=== PATIENT | female | born 1955 ===

== ENCOUNTER 2018-06-15 07:48 | Emergency (ER) | payer MEDICARE ==
[2018-06-15 07:48] VITALS: BMI 31.1
[2018-06-15 07:53] VITALS: RESP 18
--- NOTE | 2018-06-15 08:53 | C.PDOC ---
History Of Present Illness 63 year old female presents to the emergency department with complaints of a headache and pain to the back of her head status-post falling and hitting her head against a door frame in the middle of the night. Patient denies visual changes. - HPI Time Seen by Provider: 06/15/18 08:03 Chief Complaint (Nursing): Trauma History Per: Patient History/Exam Limitations: no limitations Onset/Duration Of Symptoms: Hrs Location Of Injury: Posterior: Head Past Medical History Reviewed: Historical Data, Nursing Documentation, Vital Signs Vital Signs: Last Vital Signs Temp 98.5 F 06/15/18 11:41 Pulse 69 06/15/18 11:41 Resp 18 06/15/18 11:41 BP 137/91 H 06/15/18 11:41 Pulse Ox 97 06/15/18 11:41 - Medical History PMH: Anxiety, Arthritis, Back Problems, Bipolar Disorder, Depression, Gastritis , Gall Bladder Disease, HTN, Hypercholesterolemia, Hyperthyroidism, Hypothyroidism, Schizophrenia Denies: Diabetes, Hepatitis, Chronic Kidney Disease, Sexually Transmitted Disease Surgical History: Cholecystectomy, Endoscopy Family History: States: No Known Family Hx - Social History Hx Tobacco Use: Yes Hx Alcohol Use: No Hx Substance Use: No - Immunization History Hx Tetanus Toxoid Vaccination: No Hx Influenza Vaccination: No Hx Pneumococcal Vaccination: No Review Of Systems Except As Marked, All Systems Reviewed And Found Negative. Eyes: Negative for: Vision Change Musculoskeletal: Positive for: Other (occipital pain) Physical Exam - Physical Exam Appears: Non-toxic, No Acute Distress Skin: Warm, Dry Head: Tenderness (occipital scalp), Swelling (to occipital scalp) Eye(s): bilateral: Normal Inspection, PERRL, EOMI Neck: Normal, Supple Chest: Symmetrical Cardiovascular: Rhythm Regular, No Murmur Respiratory: Normal Breath Sounds, No Rales, No Rhonchi, No Wheezing Extremity: Normal ROM Neurological/Psych: Oriented x3, Normal Speech, Normal Cognition ED Course And Treatment O2 Sat by Pulse Oximetry: 96 (RA) Pulse Ox Interpretation: Normal - CT Scan/US CT C-Spine Other Rad Studies (CT/US): Read By Radiologist, Radiology Report Reviewed CT/US Interpretation: IMPRESSION: No fracture/ dislocation. Degenerative disc disease at C4-5 and C5-6. Possible muscular spasm. Levoscoliosis. Multinodular thyroid. Correlate with thyroid ultrasound examination. CT Head Other Rad Studies (CT/US): Read By Radiologist, Radiology Report Reviewed CT/US Interpretation: IMPRESSION: No intracranial hemorrhage. Age related chronic white matter ischemic change. Otherwise unremarkable examination. Progress Note: Plan: CT C-Spine. CT Head. Reglan 10mg PO. Tylenol 975mg PO Medical Decision Making Medical Decision Making: On re-exam, the patient reports improvement of symptoms. Lungs are CTA, heart is RRR, abdomen is soft, non-tender and tolerating PO well. Ambulatory in the ED with steady gait. Follow up with the medical doctor within 1-2 days. return if worsened. Disposition - Disposition Referrals: Janet Griffin MD [Medical Doctor] - Disposition: HOME/ ROUTINE Disposition Time: 11:21 Condition: STABLE Additional Instructions: Follow up with the medical doctor within 1-2 days. return if worsened. Prescriptions: Acetaminophen [Tylenol] 325 mg PO Q6 PRN #30 tab PRN Reason: Pain, Mild (1-3) Ibuprofen [Motrin] 600 mg PO TID #21 tab Instructions: Head Injury, Children and Adolescents (DC) Forms: [employer] (Syrian) - Clinical Impression Clinical Impression: Cervical strain, Head injury - PA / TEA BLENDER / Resident Statement MD/DO has reviewed & agrees with the documentation as recorded. - Scribe Statement The provider has reviewed the documentation as recorded by the Scribe (Favian Valenzuela) All medical record entries made by the Scribe were at my direction and personally dictated by me. I have reviewed the chart and agree that the record accurately reflects my personal performance of the history, physical exam, medical decision making, and the department course for this patient. I have also personally directed, reviewed, and agree with the discharge instructions and disposition.
--- NOTE | 2018-06-15 10:46 | CT ---
Date of service: 06/15/2018 PROCEDURE: CT HEAD WITHOUT CONTRAST. HISTORY: head injury, headache, r/o bleed COMPARISON: None available. TECHNIQUE: Axial computed tomography images were obtained through the head/brain without intravenous contrast. Radiation dose: Total exam DLP = 1137.90 mGy-cm. This CT exam was performed using one or more of the following dose reduction techniques: Automated exposure control, adjustment of the mA and/or kV according to patient size, and/or use of iterative reconstruction technique. FINDINGS: HEMORRHAGE: No intracranial hemorrhage. BRAIN: No mass effect or edema. Mild patchy periventricular deep/ subcortical white matter lucency consistent with chronic microvascular ischemic change. No evidence of acute infarct. VENTRICLES: Unremarkable. No hydrocephalus. CALVARIUM: Unremarkable. PARANASAL SINUSES: Unremarkable as visualized. No significant inflammatory changes. MASTOID AIR CELLS: Unremarkable as visualized. No inflammatory changes. OTHER FINDINGS: None. IMPRESSION: No intracranial hemorrhage. Age related chronic white matter ischemic change. Otherwise unremarkable examination.
--- NOTE | 2018-06-15 11:09 | CT ---
Date of service: 06/15/2018 PROCEDURE: CT Cervical Spine without contrast HISTORY: fall, neck pain COMPARISON: None available. TECHNIQUE: Axial computed tomography images were obtained of the cervical spine without the use of intravenous contrast. Coronal and sagittal reformatted images were created and reviewed. Radiation dose: Total exam DLP = 527.93 mGy-cm. This CT exam was performed using one or more of the following dose reduction techniques: Automated exposure control, adjustment of the mA and/or kV according to patient size, and/or use of iterative reconstruction technique. FINDINGS: VERTEBRAE: Vertebral bodies maintained in height. Normal alignment maintained. There is straightening of the normal lordotic curvature indicating possible muscular spasm. There is mild levo scoliotic curvature of the cervical spine. The atlantoaxial articulation and odontoid process are intact. DISCS/SPINAL CANAL/NEURAL FORAMINA: Narrowing of the C4-5 and C5-6 disc spaces consistent with degenerative disc disease. The remaining disc spaces are maintained in height. PARASPINAL SOFT TISSUES: No prevertebral soft tissue swelling. Multinodular thyroid. Correlate with thyroid ultrasound examination. OTHER FINDINGS: None. IMPRESSION: No fracture/ dislocation. Degenerative disc disease at C4-5 and C5-6. Possible muscular spasm. Levoscoliosis. Multinodular thyroid. Correlate with thyroid ultrasound examination.
[2018-06-15 11:42] VITALS: BP 137/91; PULSE 69; TEMP 98.5
[2018-06-15 12:14] VITALS: O2SAT 96
== END 2018-06-15 11:42 | disposition home or self-care (01) ==
LOC: C.ER 07:48
DX: S16.1XXA Strain of muscle, fascia and tendon at neck level, initial encounter (principal); S09.90XA Unspecified injury of head, initial encounter; W18.30XA Fall on same level, unspecified, initial encounter

== ENCOUNTER 2018-09-07 10:28 | Emergency (ER) | payer MEDICARE ==
[2018-09-07 10:29] VITALS: BMI 31.1
[2018-09-07 10:41] VITALS: RESP 18; TEMP 99.4
--- NOTE | 2018-09-07 11:10 | C.PDOC ---
History Of Present Illness 63 yr old female w/ hx of bipolar, depression p/w back pain. Back pain started 5d prior while at work. No trauma or fall. No enuresis, encoparesis or saddle anesthesia. First time occurence. She notes R back pain radiating below to R knee. No weakness or loss of sensation. No rash. No recent diarrheal illness. Has been taking motrin at home and lidocaine patches with mild relief. No other complaints Time Seen by Provider: 09/07/18 11:10 Chief Complaint (Nursing): Back Pain Past Medical History Vital Signs: Last Vital Signs Temp 99.4 F 09/07/18 10:36 Pulse 93 H 09/07/18 10:36 Resp 18 09/07/18 10:36 BP 135/91 H 09/07/18 10:36 Pulse Ox 96 09/07/18 10:36 - Medical History PMH: Anxiety, Arthritis, Back Problems, Bipolar Disorder, Depression, Gastritis, Gall Bladder Disease, HTN, Hypercholesterolemia, Hyperthyroidism, Hypothyroidism, Schizophrenia Denies: Diabetes, Hepatitis, Chronic Kidney Disease, Sexually Transmitted Disease Surgical History: Cholecystectomy, Endoscopy Family History: States: Unknown Family Hx - Social History Hx Tobacco Use: Yes Hx Alcohol Use: Yes (past hx etoh) Hx Substance Use: No - Immunization History Hx Tetanus Toxoid Vaccination: No Hx Influenza Vaccination: No Hx Pneumococcal Vaccination: No Physical Exam - Physical Exam Appears: Well, Non-toxic, No Acute Distress Skin: Normal Color, Warm Head: Atraumatic, Normacephalic Eye(s): bilateral: Normal Inspection, PERRL, EOMI Nose: Normal Oral Mucosa: Moist Tongue: Normal Appearing Lips: Normal Appearing Teeth: Normal Dentition Gingiva: Normal Appearing Throat: Normal, No Erythema, No Exudate, No Drooling Neck: Normal, Normal ROM, No Midline Cervical Tenderness, No Paracervical Tenderness, Supple, Other (no meningeal signs) Chest: Symmetrical, No Deformity Cardiovascular: Rhythm Regular Respiratory: Normal Breath Sounds, No Decreased Breath Sounds Gastrointestinal/Abdominal: Normal Exam Back: Normal Inspection, No CVA Tenderness, No Vertebral Tenderness, No Decreased ROM, No Muscle Spasm, Paraspinal Tenderness, Straight Leg Raising (+, R) Extremity: Normal ROM, No Tenderness, No Calf Tenderness, No Deformity Extremity: Bilateral: Atraumatic, No Pedal Edema, Normal Color And Temperature, Normal ROM Pulses: Left Dorsalis Pedis: Normal, Right Dorsalis Pedis: Normal Neurological/Psych: Oriented x3, Normal Speech, Normal Cognition, Normal Cranial Nerves, No Cerebellar Signs, Normal Motor Gait: Steady Extremity: Right: No Drift, Left: No Drift, Upper: No Drift, Lower: No Drift ED Course And Treatment O2 Sat by Pulse Oximetry: 96 Medical Decision Making Medical Decision Makin yr old female w/ hx of bipolar, depression p/w back pain. No trauma or fall. +SLR on right. No enuresis, encoparesis or saddle anesthesia. No other complaints. No DM. No Rash. No vertebral tenderness. No cauda equina signs Walking well In NAD pending imaging. 1259 No fx pain improved, ambulating well, remains w/ out cauda equina symptoms clear for d/c home Disposition - Disposition Disposition Time: 12:26 Condition: GOOD Forms: [employer] (Swedish) - Clinical Impression Clinical Impression: Low back pain, Sciatica
--- NOTE | 2018-09-07 12:56 | RAD ---
Date of service: 09/07/2018 PROCEDURE: Radiographs of the Lumbar Spine. HISTORY: R hip / back pain COMPARISON: No prior. FINDINGS: BONES: Exuberant anterior spondylosis at T11-12 present. No suspect lumbar vertebral body compression fracture suggested. Five mm anterior subluxation of L4 relative to L5-inferred secondary to ligamentous laxity given the facet arthrosis at this level. A concomitant element of a left pars interarticularis defect is not excluded. For this consider lumbar oblique views. DISC SPACES: Disc space narrowing posteriorly are levels. And markedly a anteriorly at the T11-12 level. OTHER FINDINGS: Atherosclerotic vascular calcifications present. Right upper quadrant cholecystectomy clips. IMPRESSION: No vertebral body fracture. Mild anterior subluxation of L4 relative to L5-this is likely in large part due to ligamentous laxity associated with the facet arthrosis. Possibility of a concomitant or unilateral pars defect be excluded. For this consider bilateral lumbar oblique x-ray views. Degenerative changes elsewhere as above.
[2018-09-07 12:57] VITALS: BP 147/84; PULSE 69
[2018-09-07 13:05] VITALS: O2SAT 96
--- NOTE | 2018-09-07 13:42 | RAD ---
Date of service: 09/07/2018 PROCEDURE: HISTORY: r back pain, sciatica like COMPARISON: 02/27/2017 TECHNIQUE: AP pelvis and frog's leg view. FINDINGS: L4-5 and L5-S1 facet hypertrophic arthrosis. Unremarkable sacroiliac joints. Minimal sclerotic pubic symphyseal joint arthrosis. Bilateral hip mild arthrosis. Right peritrochanteric well corticated ossifications: Old osseous avulsions versus trochanteric calcific bursitis. Concomitant right gluteal calcific tendinopathy and/or right gluteal capsullo ligamentous ossification possible. IMPRESSION: No fracture or lytic lesions. Mild bilateral hip arthrosis Right licha trochanteric calcifications/ossifications-no interval change-differential considerations as above. Facet arthrosis. Other findings as above.
== END 2018-09-07 13:12 | disposition home or self-care (01) ==
LOC: C.ER 10:28
DX: M54.41 Lumbago with sciatica, right side (principal)
CPT/HCPCS: 72100; 73502; 96372; 99283; J1885

== ENCOUNTER 2018-11-06 11:28 | Outpatient (CLI) | payer MEDICARE | END 2018-11-06 11:29 | disposition home or self-care (01) | LOC: C.MRIC 11:28 | DX: M54.5 Low back pain (principal) ==

== ENCOUNTER 2018-12-02 14:04 | Outpatient (CLI) | payer MEDICARE | END 2018-12-02 14:05 | disposition home or self-care (01) | LOC: C.RADIC 14:04 | DX: R05 Cough (principal) ==

== ENCOUNTER 2019-02-10 12:53 | Outpatient (CLI) | payer MEDICARE, OTHER | END 2019-02-10 12:54 | disposition home or self-care (01) | LOC: C.MAMMO 12:53 | DX: R92.8 Other abnormal and inconclusive findings on diagnostic imaging of breast (principal) ==